=== PATIENT | male | born 1950 | race Hispanic/Latino ===

== ENCOUNTER 2022-04-29 07:27 | Inpatient (IN) | payer OTHER ==
[~2022-04-29] VITALS: Ht 170.2 cm; Wt 72.6 kg
[~2022-04-29 07:27] MED LIST: FLOMAX0.4 MG PO; GLIMEPIRIDE2 MG PO; JENTADUETO 2.51 EAC2 PO; LISINOPRIL-HCT1 EAC1 PO; NIFEDIPINE ER30 M1 PO; OMEGA 3 FISH O1 EACH PO
[2022-04-29] MEDS ORDERED: CEFTRIAXONE 1 GM VIAL ONE (07:50)
[2022-04-29] MEDS ORDERED: SODIUM CHLORIDE 0.9% 1000ML 0 ML ONE (07:50)
[2022-04-29 07:59] LABS: BASOPHILS % 0.2 % (0.0-1.0); EOSINOPHILS # (AUTO) 0.2 (0.0-0.4); EOSINOPHILS % 2.5 % (0.0-6.0); HEMATOCRIT 28.7 % (38.2-49.6); HEMOGLOBIN 9.9 g/dL (14.0-18.0); LYMPHOCYTES # (AUTO) 3.7 (1.0-3.2); LYMPHOCYTES % 41.9 % (18.0-39.1); MEAN CORPUSCULAR HEMOGLOBIN 29.1 pg (28-32); MEAN CORPUSCULAR HGB CONC 34.5 g/dL (31-35); MEAN CORPUSCULAR VOLUME 84.4 fL (81-99); MONOCYTES # (AUTO) 0.6 (0.2-0.8); NEUTROPHILS # (AUTO) 4.2 (2.1-6.9); NEUTROPHILS % 48.2 % (38.7-80.0); PLATELET COUNT 353 x10e3/uL (140-360); RED CELL DISTRIBUTION WIDTH 11.8 % (11.7-14.4)
[2022-04-29] MEDS ORDERED: SODIUM CHLORIDE 0.9% 500ML 500 ML IV ONE (08:00)
[2022-04-29 08:16] LABS: INR 0.84; PROTHROMBIN TIME 12.3 seconds (11.9-14.5)
[2022-04-29 08:17] LABS: PARTIAL THROMBOPLASTIN TIME 36.3 seconds (23.8-35.5)
[2022-04-29 08:20] LABS: ALBUMIN/GLOBULIN RATIO 0.8 (0.8-2.0); ANION GAP 13.8 mmol/L (8-16); CALCIUM 8.4 mg/dL (8.4-10.2); CREATININE, SERUM 1.5 mg/dL (0.72-1.25); MAGNESIUM 1.9 MG/DL (1.3-2.1); POTASSIUM 3.8 mmol/L (3.5-5.1)
[2022-04-29 08:22] LABS: STREPTOCOCCUS GRP A ANTIGEN NEGATIVE (NEGATIVE)
[2022-04-29 08:25] LABS: INFLUENZAE A&B ANTIGEN (RAPID) NEGATIVE (NEGATIVE)
[2022-04-29 08:40] LABS: CREATINE KINASE MB 1.4 ng/mL (0-5.0)
[2022-04-29] MEDS ORDERED: IOPAMIDOL 370 MG/ML 100 ML INFUS..BTL INJ ONE (08:46)
[2022-04-29 09:35] LABS: CLARITY,URINE CLEAR (CLEAR); COLOR,URINE YELLOW (YELLOW)
[2022-04-29 09:36] LABS: LEUKOCYTE ESTERASE ,URINE NEGATIVE (NEGATIVE); NITRITE,URINE NEGATIVE (NEGATIVE); PROTEIN,URINE DIPSTICK 2+ (NEGATIVE)
[2022-04-29 09:37] LABS: KETONES,URINE NEGATIVE (NEGATIVE); URINE UROBILINOGEN 0.2 mg/dL (0.2 - 1)
[2022-04-29 09:47] LABS: BACTERIA,URINE RARE /HPF; EPITHELIAL CELLS,URINE RARE /LPF; WBC,URINE (MAN) 0-5 /HPF (0-5)
[2022-04-29] MEDS ORDERED: ONDANSETRON HCL INJ 2MG/ML 2ML 2 MG/ML VIAL IV PRN (11:00)
[2022-04-29] MEDS: SODIUM CHLORIDE 0.9% 1000ML 1,000 ML IV SCH (11:20)
[2022-04-29 14:28] VITALS: BP 143/67
[2022-04-29 15:50] LABS: CREATINE KINASE 45 IU/L (30-200)
[2022-04-29] MEDS ORDERED: JENTADUETO 2.51 EAC2 PO (15:51)
[2022-04-29] MEDS ORDERED: NIFEDIPINE ER30 M1 PO (15:51)
[2022-04-29] MEDS ORDERED: GLIMEPIRIDE2 MG PO (15:52)
[2022-04-29] MEDS ORDERED: ELIQUIS5 MG PO (15:59)
[2022-04-29 16:38] VITALS: BP 143/67
[2022-04-29] MEDS: Morphine 2mg Syringe 2 MG/ML SYR IV PRN ×2 (16:55→22:55)
[2022-04-29 20:00] VITALS: BP 159/66
[2022-04-29 23:54] VITALS: BP 159/66
[2022-04-30] VITALS (7 sets, daily range): BP systolic 120–177; BP diastolic 58–67
[2022-04-30 01:23] LABS: CREATINE KINASE MB 1.1 ng/mL (0-5.0)
[2022-04-30] MEDS: SODIUM CHLORIDE 0.9% 1000ML 1,000 ML IV SCH ×3 (04:56→16:54)
[2022-04-30 05:44] LABS: BASOPHILS % 0.3 % (0.0-1.0); EOSINOPHILS # (AUTO) 0.3 (0.0-0.4); EOSINOPHILS % 2.9 % (0.0-6.0); HEMATOCRIT 25.2 % (38.2-49.6); HEMOGLOBIN 8.6 g/dL (14.0-18.0); LYMPHOCYTES # (AUTO) 3.9 (1.0-3.2); LYMPHOCYTES % 42.6 % (18.0-39.1); MEAN CORPUSCULAR HEMOGLOBIN 29.7 pg (28-32); MEAN CORPUSCULAR HGB CONC 34.1 g/dL (31-35); MEAN CORPUSCULAR VOLUME 86.9 fL (81-99); MONOCYTES # (AUTO) 0.7 (0.2-0.8); MONOCYTES % 7.5 % (4.4-11.3); NEUTROPHILS # (AUTO) 4.2 (2.1-6.9); NEUTROPHILS % 46.5 % (38.7-80.0); PLATELET COUNT 329 x10e3/uL (140-360); RED CELL DISTRIBUTION WIDTH 11.9 % (11.7-14.4)
[2022-04-30 06:19] LABS: ALBUMIN 2.5 g/dL (3.5-5.0); ALBUMIN/GLOBULIN RATIO 0.8 (0.8-2.0); CALCIUM 8.1 mg/dL (8.4-10.2); CREATININE, SERUM 1.16 mg/dL (0.72-1.25)
[2022-04-30] MEDS ORDERED: ACETAMINOPHEN 325 MG TAB PO PRN (11:15)
[2022-04-30] MEDS ORDERED: DEXTROSE 50% SYRINGE 50 ML IV PRN (11:15)
[2022-04-30 11:38] LABS: MAGNESIUM 1.8 MG/DL (1.3-2.1); PHOSPHORUS 3.4 MG/DL (2.3-4.7)
[2022-04-30] MEDS: INSULIN LISPRO 100 UNIT/1 ML 3ML VIAL SQ SCH ×3 (11:59→21:00)
[2022-04-30 12:02] LABS: THYROID STIMULATING HORMONE 2.672 uIU/mL (0.350-4.940)
[2022-04-30] MEDS: NIFEDIPINE CR 30 MG TAB PO SCH (12:45)
[2022-04-30] MEDS: APIXABAN 5 MG TABLET PO SCH (16:53)
[2022-04-30] MEDS: TAMSULOSIN HCL 0.4 MG CAP PO SCH (16:54)
[2022-04-30 21:11] LABS: TOTAL PROTEIN, URINE 125.9 mg/dL (1-14)
[2022-04-30 21:18] LABS: POTASSIUM,URINE 12.6 mmol/L
[2022-05-01] VITALS (7 sets, daily range): BP systolic 107–205; BP diastolic 56–79
[2022-05-01 06:36] LABS: BASOPHILS # (AUTO) 0.1 (0.0-0.1); BASOPHILS % 0.5 % (0.0-1.0); EOSINOPHILS # (AUTO) 0.3 (0.0-0.4); EOSINOPHILS % 3.4 % (0.0-6.0); HEMATOCRIT 28.9 % (38.2-49.6); HEMOGLOBIN 9.5 g/dL (14.0-18.0); LYMPHOCYTES % 42.4 % (18.0-39.1); MEAN CORPUSCULAR HEMOGLOBIN 29.6 pg (28-32); MEAN CORPUSCULAR HGB CONC 32.9 g/dL (31-35); MONOCYTES # (AUTO) 0.7 (0.2-0.8); MONOCYTES % 7.4 % (4.4-11.3); NEUTROPHILS # (AUTO) 4.3 (2.1-6.9); PLATELET COUNT 337 x10e3/uL (140-360); RED BLOOD COUNT 3.21 x10e6/uL (4.3-5.7); RED CELL DISTRIBUTION WIDTH 12.4 % (11.7-14.4)
[2022-05-01 07:14] LABS: ANION GAP 14.8 mmol/L (8-16); CALCIUM 8.6 mg/dL (8.4-10.2); CREATININE, SERUM 1.05 mg/dL (0.72-1.25); POTASSIUM 4.8 mmol/L (3.5-5.1)
[2022-05-01] MEDS: INSULIN LISPRO 100 UNIT/1 ML 3ML VIAL SQ SCH ×4 (07:30→21:32)
[2022-05-01] MEDS: APIXABAN 5 MG TABLET PO SCH (08:15)
[2022-05-01] MEDS: NIFEDIPINE CR 30 MG TAB PO SCH (08:16)
[2022-05-01] MEDS: HYDRALAZINE HCL 25 MG TAB PO SCH ×3 (10:51→21:30)
[2022-05-01] MEDS: METOPROLOL TARTRATE 25 MG TAB PO SCH ×2 (10:51→17:00)
[2022-05-01] MEDS: HYDROCODONE/APAP 5MG-325MG TAB PO PRN (10:52)
[2022-05-01] MEDS: TAMSULOSIN HCL 0.4 MG CAP PO SCH (17:00)
[2022-05-01] MEDS: ENOXAPARIN SOD INJ 40 MG/0.4 ML SYR SC SCH (17:00)
[2022-05-02] VITALS (8 sets, daily range): BP systolic 116–169; BP diastolic 57–85
[2022-05-02] MEDS: NIFEDIPINE CR 30 MG TAB PO SCH (09:03)
[2022-05-02] MEDS: HYDRALAZINE HCL 25 MG TAB PO SCH ×3 (09:03→20:32)
[2022-05-02] MEDS: METOPROLOL TARTRATE 25 MG TAB PO SCH ×2 (09:04→17:26)
[2022-05-02] MEDS: INSULIN LISPRO 100 UNIT/1 ML 3ML VIAL SQ SCH ×4 (09:46→20:39)
[2022-05-02] MEDS ORDERED: ONDANSETRON HCL 4 MG ORAL DISINTEGRATING TAB SL PRN (10:45)
[2022-05-02] MEDS: TAMSULOSIN HCL 0.4 MG CAP PO SCH (17:25)
[2022-05-02] MEDS: ENOXAPARIN SOD INJ 40 MG/0.4 ML SYR SC SCH (17:26)
[2022-05-03] VITALS (8 sets, daily range): BP systolic 124–175; BP diastolic 54–70
[2022-05-03 05:21] LABS: BASOPHILS # (AUTO) 0.1 (0.0-0.1); BASOPHILS % 0.6 % (0.0-1.0); EOSINOPHILS # (AUTO) 0.4 (0.0-0.4); EOSINOPHILS % 3.8 % (0.0-6.0); HEMATOCRIT 29.2 % (38.2-49.6); HEMOGLOBIN 9.5 g/dL (14.0-18.0); LYMPHOCYTES # (AUTO) 5.2 (1.0-3.2); LYMPHOCYTES % 48.1 % (18.0-39.1); MEAN CORPUSCULAR HEMOGLOBIN 29.3 pg (28-32); MEAN CORPUSCULAR HGB CONC 32.5 g/dL (31-35); MEAN CORPUSCULAR VOLUME 90.1 fL (81-99); MONOCYTES # (AUTO) 0.7 (0.2-0.8); MONOCYTES % 6.1 % (4.4-11.3); NEUTROPHILS # (AUTO) 4.4 (2.1-6.9); NEUTROPHILS % 41.1 % (38.7-80.0); PLATELET COUNT 336 x10e3/uL (140-360); RED BLOOD COUNT 3.24 x10e6/uL (4.3-5.7); RED CELL DISTRIBUTION WIDTH 12.9 % (11.7-14.4)
[2022-05-03 05:46] LABS: ANION GAP 14.4 mmol/L (8-16); CALCIUM 9.2 mg/dL (8.4-10.2); CREATININE, SERUM 1.16 mg/dL (0.72-1.25); POTASSIUM 4.4 mmol/L (3.5-5.1)
[2022-05-03] MEDS: INSULIN LISPRO 100 UNIT/1 ML 3ML VIAL SQ SCH ×4 (08:00→21:49)
[2022-05-03] MEDS: HYDRALAZINE HCL 25 MG TAB PO SCH ×3 (10:12→21:45)
[2022-05-03] MEDS: METOPROLOL TARTRATE 25 MG TAB PO SCH ×2 (10:13→17:01)
[2022-05-03] MEDS: NIFEDIPINE CR 30 MG TAB PO SCH (10:14)
[2022-05-03] MEDS: TAMSULOSIN HCL 0.4 MG CAP PO SCH (17:01)
[2022-05-03] MEDS: ENOXAPARIN SOD INJ 40 MG/0.4 ML SYR SC SCH (17:03)
[2022-05-04] VITALS (8 sets, daily range): BP systolic 130–179; BP diastolic 54–70
[2022-05-04] MEDS: HYDRALAZINE HCL 25 MG TAB PO SCH ×3 (09:26→20:28)
[2022-05-04] MEDS: METOPROLOL TARTRATE 25 MG TAB PO SCH ×2 (09:27→17:28)
[2022-05-04] MEDS: NIFEDIPINE CR 30 MG TAB PO SCH (09:27)
[2022-05-04] MEDS: INSULIN LISPRO 100 UNIT/1 ML 3ML VIAL SQ SCH ×4 (09:29→20:35)
[2022-05-04] MEDS: HYDROCODONE/APAP 5MG-325MG TAB PO PRN (11:48)
[2022-05-04 14:12] LABS: OSMOLALITY,SERUM OSMOMETER 272 mOsmol/kg (280-301)
[2022-05-04] MEDS: TAMSULOSIN HCL 0.4 MG CAP PO SCH (17:27)
[2022-05-04] MEDS: ENOXAPARIN SOD INJ 40 MG/0.4 ML SYR SC SCH (17:28)
[2022-05-04] MEDS ORDERED: NIFEDIPINE CR 30 MG TAB PO ONE (17:45)
[2022-05-05] VITALS (7 sets, daily range): BP systolic 126–159; BP diastolic 57–67
[2022-05-05 06:25] LABS: CALCIUM 8.5 mg/dL (8.4-10.2); CREATININE, SERUM 1.43 mg/dL (0.72-1.25)
[2022-05-05] MEDS: HYDRALAZINE HCL 25 MG TAB PO SCH ×3 (08:45→20:15)
[2022-05-05] MEDS: NIFEDIPINE CR 30 MG TAB PO SCH (08:46)
[2022-05-05] MEDS: METOPROLOL TARTRATE 25 MG TAB PO SCH ×2 (08:46→17:05)
[2022-05-05] MEDS: INSULIN LISPRO 100 UNIT/1 ML 3ML VIAL SQ SCH ×5 (08:49→21:00)
[2022-05-05] MEDS ORDERED: ONDANSETRON HCL INJ 2MG/ML 2ML 2 MG/ML VIAL IV PRN (16:30)
[2022-05-05] MEDS: TAMSULOSIN HCL 0.4 MG CAP PO SCH (17:05)
[2022-05-05] MEDS ORDERED: DEXTROSE 5%/0.9% SOD CHL 1,000 ML IV ONE (18:00)
[2022-05-05] MEDS: INSULIN GLARGINE 100 UNITS/ML VIAL SQ SCH ×2 (20:31→21:00)
[2022-05-06 01:33] VITALS: BP 103/44
[2022-05-06 05:12] LABS: ANION GAP 14.1 mmol/L (8-16); CALCIUM 8.4 mg/dL (8.4-10.2); CREATININE, SERUM 1.42 mg/dL (0.72-1.25); POTASSIUM 4.1 mmol/L (3.5-5.1)
[2022-05-06 05:57] VITALS: BP 141/56
[2022-05-06] MEDS ORDERED: Vancomycin IV 1 GM VIAL ONE (07:27)
[2022-05-06] MEDS ORDERED: THROMBIN FOR SOLN 5,000 UNIT VIAL ONE (07:28)
[2022-05-06] MEDS ORDERED: BUPIVACAINE/EPINEPHRINE 0.5% 10 ML SDV INJ ONE (07:28)
[2022-05-06] MEDS ORDERED: LIDOCAINE HCL 1% LOCAL INJ 20 ML VIAL ONE ×2 (07:28→09:57)
[2022-05-06] MEDS: INSULIN LISPRO 100 UNIT/1 ML 3ML VIAL SQ SCH ×4 (07:30→21:02)
[2022-05-06 07:41] LABS: BASOPHILS # (AUTO) 0.1 (0.0-0.1); BASOPHILS % 0.5 % (0.0-1.0); EOSINOPHILS # (AUTO) 0.4 (0.0-0.4); EOSINOPHILS % 4.4 % (0.0-6.0); HEMATOCRIT 26.9 % (38.2-49.6); HEMOGLOBIN 8.8 g/dL (14.0-18.0); LYMPHOCYTES # (AUTO) 4.3 (1.0-3.2); LYMPHOCYTES % 45.2 % (18.0-39.1); MEAN CORPUSCULAR HEMOGLOBIN 29.6 pg (28-32); MEAN CORPUSCULAR HGB CONC 32.7 g/dL (31-35); MEAN CORPUSCULAR VOLUME 90.6 fL (81-99); MONOCYTES # (AUTO) 0.5 (0.2-0.8); MONOCYTES % 5.4 % (4.4-11.3); NEUTROPHILS # (AUTO) 4.2 (2.1-6.9); NEUTROPHILS % 44.3 % (38.7-80.0); PLATELET COUNT 322 x10e3/uL (140-360); RED BLOOD COUNT 2.97 x10e6/uL (4.3-5.7); RED CELL DISTRIBUTION WIDTH 12.5 % (11.7-14.4)
[2022-05-06] MEDS ORDERED: INSULIN REGULAR, HUMAN 100 UNIT/1 ML ONE (07:46)
[2022-05-06 07:50] LABS: INR 0.81
[2022-05-06 07:51] LABS: PARTIAL THROMBOPLASTIN TIME 32.6 seconds (23.8-35.5)
[2022-05-06] MEDS: NIFEDIPINE CR 30 MG TAB PO SCH (08:02)
[2022-05-06] MEDS: HYDRALAZINE HCL 25 MG TAB PO SCH ×3 (08:02→20:54)
[2022-05-06] MEDS: METOPROLOL TARTRATE 25 MG TAB PO SCH ×2 (08:02→17:49)
[2022-05-06] MEDS ORDERED: ZOLPIDEM TARTRATE 5 MG TAB PO PRN (09:30)
[2022-05-06] MEDS ORDERED: PROMETHAZINE HCL (IM) 25 MG/ML VIAL IM PRN (09:30)
[2022-05-06] MEDS ORDERED: Morphine 4mg INJECTION 4 MG/ML INJ IM PRN (09:30)
[2022-05-06] MEDS ORDERED: ACETAMINOPHEN 325 MG TAB PO PRN (09:30)
[2022-05-06] MEDS ORDERED: CARISOPRODOL 350 MG TAB PO PRN (09:30)
[2022-05-06] MEDS ORDERED: CEPACOL SORE THROAT LOZENGES PO PRN (09:30)
[2022-05-06] MEDS ORDERED: HYDROMORPHONE 2MG/ML 2 MG/ML ML IV PRN (09:30)
[2022-05-06] MEDS ORDERED: MAGNESIUM/ALUMINUM/SIMETHICONE 30 ML UDC PO PRN (09:30)
[2022-05-06] MEDS ORDERED: ONDANSETRON HCL INJ 2MG/ML 2ML 2 MG/ML VIAL IV PRN (09:30)
[2022-05-06] MEDS ORDERED: HYDROCODON-ACE1 EA12 PO (09:41)
[2022-05-06] MEDS ORDERED: OXYCODONE/ACETAMINOPHEN 5-325 1 EACH TABLET PO PRN (10:00)
[2022-05-06 12:03] VITALS: BP 166/69
[2022-05-06] MEDS: LACTATED RINGER'S 1,000 ML IV SCH ×2 (12:50→18:20)
[2022-05-06 16:51] VITALS: BP 181/81
[2022-05-06] MEDS: TAMSULOSIN HCL 0.4 MG CAP PO SCH (17:48)
[2022-05-06 20:00] VITALS: BP 201/90
[2022-05-06] MEDS: INSULIN GLARGINE 100 UNITS/ML VIAL SQ SCH (21:03)
[2022-05-06 21:35] VITALS: BP 201/90
[2022-05-07 02:01] VITALS: BP 185/63
[2022-05-07 03:35] VITALS: BP 191/69
[2022-05-07] MEDS: NIFEDIPINE CR 30 MG TAB PO SCH (03:37)
[2022-05-07] MEDS: OXYCODONE/ACETAMINOPHEN 5-325 1 EACH TABLET PO PRN ×2 (07:31→12:38)
[2022-05-07] MEDS ORDERED: NIFEDIPINE CR 30 MG TAB PO ONE (09:00)
[2022-05-07] MEDS: HYDRALAZINE HCL 25 MG TAB PO SCH (09:20)
[2022-05-07] MEDS: METOPROLOL TARTRATE 25 MG TAB PO SCH (09:20)
[2022-05-07 11:40] VITALS: BP 136/55
[2022-05-07] MEDS: INSULIN LISPRO 100 UNIT/1 ML 3ML VIAL SQ SCH ×2 (11:43→12:00)
[2022-05-07] MEDS ORDERED: ONDANSETRON HCL INJ 2MG/ML 2ML 2 MG/ML VIAL IV ONE (12:41)
[2022-05-07] MEDS ORDERED: POVIDONE IODINE 0.05% 0.05 % ML PO ONE (12:41)
[2022-05-07] MEDS ORDERED: NEOSTIGMINE 1 MG/ML 10ML VIAL IV ONE (12:41)
[2022-05-07] MEDS ORDERED: KETOROLAC TROMETHAMINE 30 MG/ML VIAL IV ONE (12:41)
[2022-05-07] MEDS ORDERED: ROCURONIUM BROMIDE 10 MG/ML 5ML VIAL IV ONE (12:41)
[2022-05-07] MEDS ORDERED: DEXAMETHASONE SOD PHOS INJ 4 MG/ML SDV IV ONE (12:41)
[2022-05-07] MEDS ORDERED: ACETAMINOPHEN 1000 MG/100 ML IV ONE (12:41)
[2022-05-07] MEDS ORDERED: PROPOFOL IV EMULSION 10 MG/ML 20 ML VIAL IV ONE (12:41)
[2022-05-07] MEDS ORDERED: SEVOFLURANE INHAL SOLN 250 ML PEN BTL INH ONE (12:41)
[2022-05-07] MEDS ORDERED: GLYCOPYRROLATE INJ 0.2 MG/ML VIAL IV ONE (12:41)
[2022-05-07] MEDS ORDERED: METHOCARBAMOL 100MG/1ML 10ML VIAL IV ONE (12:41)
[2022-05-07] MEDS ORDERED: LIDOCAINE HCL 2% LOCAL INJ 5 ML SDV VIAL INJ ONE (12:41)
[2022-05-08] MEDS ORDERED: NIFEDIPINE CR 30 MG TAB PO SCH (06:00)
== END 2022-05-07 12:42 | disposition home or self-care (01) | DRG 516 ==
LOC: ER 07:30 → ERHOLD 11:02 → OBSVTOIN 11:02 → INTOOBSV 11:02 → MED/SURG3 14:29 → OBSVTOIN 05-01 10:23
PROVIDERS: ADMIT Internal Medicine; ATTEND Internal Medicine
PROC: 01NB0ZZ Release Lumbar Nerve, Open Approach (ICD-10-PCS; principal; 2022-05-01)
DX: M48.062 Spinal stenosis, lumbar region with neurogenic claudication (principal); E22.2 Syndrome of inappropriate secretion of antidiuretic hormone; N17.9 Acute kidney failure, unspecified; E86.0 Dehydration; E11.22 Type 2 diabetes mellitus with diabetic chronic kidney disease; I12.9 Hypertensive chronic kidney disease with stage 1 through stage 4 chronic kidney disease, or unspecified chronic kidney disease; N18.30 Chronic kidney disease, stage 3 unspecified; D50.9 Iron deficiency anemia, unspecified; I16.0 Hypertensive urgency; Z86.711 Personal history of pulmonary embolism; Z79.01 Long term (current) use of anticoagulants; Z20.822 Contact with and (suspected) exposure to COVID-19
CPT/HCPCS: 36415; 71045; 72020; 72148; 74177; 76770; 80048; 80053; 81001; 82270; 82550; 82553; 82570; 82607; 82746; 82948; 83036; 83518; 83540; 83735; 83880; 83930; 83935; 84100; 84133; 84156; 84300; 84436; 84443; 84466; 84484; 84550; 85025; 85610; 85730; 86850; 86900; 87070; 87086; 87400; 88304; 88311; 93005; 94799; 96361; 96372; 99284; G0378; J0690; J0696; J1100; J1650; J1817; J1885; J2001; J2270; J2405; J2710; J2800; J3370; J7030; J7042; J7121; Q9967